=== PATIENT | female | born 1995 | race Asian ===

== ENCOUNTER 2018-09-12 01:39 | Emergency (ER) | payer OTHER ==
[~2018-09-12] VITALS: Ht 167.6 cm; Wt 85.2 kg
[2018-09-12] MEDS ORDERED: ALBUTEROL/IPRATROPIUM 2.5MG/0.5MG, 3 ML ONE (02:10)
[2018-09-12] MEDS: ALBUTEROL/IPRATROPIUM 2.5MG/0.5MG, 3 ML NPPB SCH ×2 (02:21→02:49)
--- NOTE | 2018-09-12 02:25 | NUR ---
LATE ENTRY: PT. CAME IN TO ED WITH C/O SOB AND WHEEZING WAS AUDIBLE BY OPERATIONS CONTROLLER. PT. TO ROOM VIA W/C AND MONITORS PLACED. PT. DID RECEIVE BREATHING TX PRIOR TO INITIAL CONTACT BY THIS RN AT 0220. PT. REPORTS FEELING BETTER AT THIS TIME. MEDICATED PER MAY. NADN. CALL LIGHT IN REACH. ALL SAFETY MEASURES OBSERVED.
[2018-09-12 02:29] LABS: ALBUMIN 4.2 g/dL (3.4-5.0); ANION GAP 5 mmol/L (5-15); CHLORIDE 110 mmol/L (98-107); CREATININE 0.86 mg/dL (0.55-1.02)
--- NOTE | 2018-09-12 03:13 | NUR ---
PT. RESTING ON GURNEY WITH NO DISTRESS. CBC PENDING. LAB HAD CALLED AND REPORTED SAMPLE NEEDED TO BE WARMED PRIOR TO RUNNING CBC. PT. AWARE. PT. AMBULATORY TO BR WITH STEADY GAIT.
[2018-09-12 03:21] LABS: MEAN CORPUSCULAR HEMOGLOBIN 30.3 pg (27.0-34.8); MEAN CORPUSCULAR HGB CONC 32.6 g/dL (32.4-35.8); MEAN CORPUSCULAR VOLUME 92.8 fL (80-100); MEAN PLATELET VOLUME 7.7 fL (7.4-10.4); PLATELET COUNT 364 x10^3/uL (130-400); RED BLOOD COUNT 4.86 x10^6/uL (3.82-5.3)
[2018-09-12 03:31] LABS: BASOPHILS # (AUTO) 0.03 x10^3/uL (0-0.1); BASOPHILS % (AUTO) 0 % (0-1); EOSINOPHILS # (AUTO) 0.58 x10^3/uL (0-0.4); EOSINOPHILS % (AUTO) 5 % (1-7); LYMPHOCYTES # (AUTO) 4.21 x10^3/uL (1-3.4); LYMPHOCYTES % (AUTO) 35 % (22-44); MD SCAN; MONOCYTES # (AUTO) 0.85 x10^3/uL (0.2-0.8); MONOCYTES % (AUTO) 7 % (2-9); NEUTROPHILS # (AUTO) 6.21 x10^3/uL (1.8-6.8); NEUTROPHILS % (AUTO) 52 % (42-75)
--- NOTE | 2018-09-12 03:40 | NUR ---
CHART UP FOR RECHECK AT THIS TIME .
[2018-09-12 03:49] VITALS: BP 115/68
== END 2018-09-12 03:54 | disposition home or self-care (01) ==
LOC: ED 03:52
DX: J45.21 Mild intermittent asthma with (acute) exacerbation (principal)
CPT/HCPCS: 36415; 71045; 80048; 82040; 84703; 85025; 93005; 94640; 94664; 99284; J7512; J7620